=== PATIENT | male | born 1950 | race Caucasian/White ===

== ENCOUNTER 2023-06-23 09:15 | Emergency (ER) | payer MEDICARE, SELFPAY ==
[2023-06-23 09:25] VITALS: BP 105/63; PULSE 76; RESP 18; TEMP 36.1; O2SAT 94; BMI 31.5
--- NOTE | 2023-06-23 09:34 | CRLHL7_ITS ---
For Patients: As a result of the Century Cures Act, medical imaging exams and procedure reports are released immediately into your electronic medical record. You may view this report before your referring provider. If you have questions, please contact your health care provider. INDICATION: Rectal bleeding post colonoscopy on 06/22/2023 TECHNIQUE: Axial images were obtained from the diaphragm to the pubic symphysis. Reformats were obtained in the coronal and sagittal plane. IV Contrast: 131 cc Isovue 370 Oral Contrast: None COMPARISON: None. FINDINGS: Lower chest: Basilar discoid atelectasis. Liver: Unremarkable. Normal in size and attenuation. No masses. Gallbladder and bile ducts: Unremarkable. No stones or inflammation. No biliary dilatation. Spleen: Unremarkable. Normal in size without mass. Pancreas: Moderate pancreatic atrophy. Adrenal glands: Unremarkable. No nodules. Kidneys: Unremarkable. No masses, stones, or hydronephrosis. Vasculature: Atherosclerosis without abdominal aortic aneurysm. GI tract: The stomach is decompressed. Small bowel unremarkable. Normal appendix. Colon is decompressed with colonic diverticulosis, mostly at the distal descending colon and sigmoid level. No pneumoperitoneum. Pelvis: Mild prostatic calcification. Bones: Diffuse degenerative disc disease lumbar spine. IMPRESSION: 1. Mild colonic diverticulosis without evidence of pneumoperitoneum status post colonoscopy. 2. Remainder of the abdomen and pelvis CT is unremarkable. Please note that all CT scans at this facility use dose modulation, iterative reconstruction, and/or weight-based dosing when appropriate to reduce radiation dose to as low as reasonably achievable. Dictated by Willam Lee MD @ 06/23/2023 1:00:19 PM (Electronically Signed)
--- NOTE | 2023-06-23 09:47 | ED.GENADULT ---
HPI - General Adult General Chief complaint: Post Op Complication Stated complaint: rectal bleeding Time Seen by Provider: 06/23/23 09:34 History of Present Illness HPI narrative: Patient is a 73-year-old male had colonoscopy yesterday with 9 polyps removed. He has been on aspirin. He does this just preventatively. He was seen at the [facility] headed procedure with Dr. Moris colorado. Apparently had a somewhat low heart rate during the procedure and that improved nicely he was evaluated by primary care. Patient reported 2 bowel movements with little bit of blood in them this morning. He has not been dizzy or lightheaded he did feel little nauseated briefly when he had the bloody stool but that is improved. He has had a good pulse and heart rate and blood pressure at this time he denies chest pain or breathing problem or dizziness or lightheadedness. Related Data Home Medications Medication Instructions Recorded Confirmed allopurinol 100 mg tablet 200 mg PO DAILY 06/23/23 06/23/23 aspirin 81 mg tablet,delayed 81 mg PO DAILY 06/23/23 06/23/23 release atorvastatin 20 mg tablet 20 mg PO DAILY cholesterol 06/23/23 06/23/23 carvedilol 12.5 mg tablet 12.5 mg PO BID blood pressure 06/23/23 06/23/23 cholecalciferol (vitamin D3) 50 50 mcg PO DAILY 06/23/23 06/23/23 mcg (2,000 unit) capsule gabapentin 100 mg capsule mg 06/23/23 glimepiride 1 mg tablet 2 mg PO DAILY diabetes mellitus 06/23/23 06/23/23 insulin glargine 100 unit/mL (3 68 unit subcut BID 06/23/23 06/23/23 mL) subcutaneous pen (Lantus Solostar U-100 Insulin) prednisolone acetate 1 % eye 1 drp ophthalmic (eye-left) QID 06/23/23 06/23/23 drops,suspension prednisone 10 mg tablet mg 06/23/23 semaglutide 2 mg/dose (8 mg/3 mL) mg subcut 06/23/23 subcutaneous pen injector (Ozempic) Allergies Allergy/AdvReac Type Severity Reaction Status Date / Time No Known Drug Allergies Allergy Verified 06/23/23 11:52 Review of Systems Status of ROS: Reports: 6 or more systems reviewed and unremarkable except as noted in History and below Narrative: No abdominal pain Exam Narrative: Exam Narrative: Objective: Vital signs look within normal limits, no fever, blood pressure 105/63 O2 sat 94% pulse is 76 Alert orient x3 Conjunctivae are not pale Mouth clear Patient's mental status appropriate alert oriented conversant smiling interactive Heart rhythm regular without murmur Abdomen obese benign nontender External rectal area shows no bleeding, the patient did have colonoscopy yesterday. Extremities are no edema neurologic nonfocal Const: Vital Signs, click to edit/add: Vital Signs - 24 hr 06/23/23 09:25 Temperature 96.9 F L Pulse Rate [Pulse Oximeter] 76 Respiratory Rate 18 Blood Pressure [Ri ght Upper Arm] 105/63 Pulse Oximetry 94 Oxygen Delivery Me thod Room Air Course Vital Signs Vital signs: Initial Vital Signs Temperature 96.9 F L 06/23/23 09:25 Temperature Source Temporal Artery Scan 06/23/23 09:25 Pulse Rate 76 06/23/23 09:25 Respiratory Rate 18 06/23/23 09:25 Blood Pressure 105/63 06/23/23 09:25 Blood Pressure Mean 77 06/23/23 09:25 Pulse Oximetry 94 06/23/23 09:25 Oxygen Delivery Method Room Air 06/23/23 09:25 Vital Signs Temperature 96.9 F L 06/23/23 09:25 Pulse Rate 76 06/23/23 09:25 Respiratory Rate 18 06/23/23 09:25 Blood Pressure 105/63 06/23/23 09:25 Pulse Oximetry 94 06/23/23 09:25 Oxygen Delivery Method Room Air 06/23/23 09:25 Temperature 96.9 F L 06/23/23 09:25 Pulse Rate 76 06/23/23 09:25 Respiratory Rate 18 06/23/23 09:25 Blood Pressure 105/63 06/23/23 09:25 Pulse Oximetry 94 06/23/23 09:25 Oxygen Delivery Method Room Air 06/23/23 09:25 Medical Decision Making MDM Narrative Medical decision making narrative: 73-year-old male with 9 polyp removals yesterday. [facility] I think at this point he has been on aspirin. He will hold his aspirin. Will check his hemoglobin and blood work, will also get a CT to make sure there is no perforation or other issue although that is unlikely. Disposition pending findings above patient Contin comfortable plan. Addendum 1:[address] scan of the abdomen looks unremarkable for any findings no free air no pneumoperitoneum status post colonoscopy. Patient's hemoglobin is 11.1, he has not had further bleeding. I think we can have hold his aspirin and light activity light diet and then recheck check as needed but update GI clinic within the next 2-3 days. I would also recommend he stop the aspirin as mention. He can restart about a week if he is doing well. Lab Data Labs: Lab Results 06/23/23 Range/Units 09:50 WBC 11.89 H (4.50-11.00) K/uL RBC 3.59 L (4.30-5.90) m/uL Hgb 11.1 L (13.5-17.5) gm/dL Hct 32.9 L (37.0-53.0) % MCV 92 (80-100) fL MCH 31 (26-34) pg MCHC 34 (32-36) gm/dL RDW Coeff of Steven 13.4 (11.5-15.5) % Plt Count 144 (140-440) K/uL Neut % (Auto) 70.5 (42.0-72.0) % Lymph % (Auto) 19.2 L (20-44) % [place] % (Auto) 6.2 (0.0-11.0) % Eos % (Auto) 3.7 (0.0-7.0) % Baso % (Auto) 0.3 (0.0-3.0) % Neut # (Auto) 8.40 H (1.7-7.0) K/uL Lymph # (Auto) 2.30 (0.90-2.90) K/uL [place] # (Auto) 0.70 (0.00-0.90) K/UL Eos # (Auto) 0.40 (0.00-0.50) K/uL Baso # (Auto) 0.00 (0.00-0.30) K/uL Abs Immat Gran (auto) 0.00 (0.00-0.30) K/uL Imm/Tot Granulo (auto) 0.1 % Sodium 137 (135-149) mmol/L Potassium 4.4 (3.6-5.1) mmol/L Chloride 107 (96-114) mmol/L Carbon Dioxide 24 (20-32) mmol/L Anion Gap 6 L (7-15) mEq/L BUN 26 (7-30) mg/dL Creatinine 1.8 H (0.5-1.5) mg/dL Estimated Creat Clear 44.69 Estimated GFR 39 ml/min Glucose 228 H (60-115) mg/dL Calcium 8.0 L (8.4-10.6) mg/dL Discharge Plan Discharge Clinical Impression: Status post colon polypectomy, Rectal bleeding Patient Disposition: Home w/ Parent or Adult Condition: Stable Additional Instructions: Light activity, light diet, stop aspirin for the next week. Update GI clinic in the next 24-48 hours with any symptoms, return to ED if problems or concerns. Activity Level: Light activity Discharge Diet: Regular Prescriptions: No Action prednisone 10 mg tablet Patient Comments: PLEASE SEE ATTACHED FOR DETAILED DIRECTIONS atorvastatin 20 mg tablet 20 mg PO DAILY carvedilol 12.5 mg tablet 12.5 mg PO BID allopurinol 100 mg tablet 200 mg PO DAILY aspirin 81 mg tablet,delayed release (DR/EC) 81 mg PO DAILY glimepiride 1 mg tablet 2 mg PO DAILY prednisolone acetate 1 % drops,suspension 1 drp ophthalmic (eye-left) QID gabapentin 100 mg capsule Patient Comments: PLEASE SEE ATTACHED FOR DETAILED DIRECTIONS insulin glargine [Lantus Solostar U-100 Insulin] 100 unit/mL (3 mL) insulin pen 68 unit subcut BID cholecalciferol (vitamin D3) 50 mcg (2,000 unit) capsule 50 mcg PO DAILY Ozempic 2 mg/dose (8 mg/3 mL) pen injector subcut Stand Alone Forms: MyHealth Info Instructions
[2023-06-23 10:05] LABS: Basophils Percent Auto 0.3 % (0.0-3.0); Eosinophils Percent Auto 3.7 % (0.0-7.0); Hematocrit 32.9 % (37.0-53.0); Hemoglobin* 11.1 gm/dL (13.5-17.5); Immature Granulocytes Pct Auto 0.1 %; Lymphocytes Percent Auto 19.2 % (20-44); Mean Corpuscular HGB Conc 34 gm/dL (32-36); Mean Corpuscular Hemoglobin 31 pg (26-34); Mean Corpuscular Volume 92 fL (80-100); Monocytes Percent Auto 6.2 % (0.0-11.0); Neutrophils Percent Auto 70.5 % (42.0-72.0); Platelet Count* 144 K/uL (140-440); RDW Coefficient of Variation % 13.4 % (11.5-15.5); Red Blood Count 3.59 m/uL (4.30-5.90); White Blood Count* 11.89 K/uL (4.50-11.00)
[2023-06-23 10:17] LABS: Chloride* 107 mmol/L (96-114); Potassium* 4.4 mmol/L (3.6-5.1); Sodium* 137 mmol/L (135-149)
[2023-06-23 10:20] LABS: Anion Gap 6 mEq/L (7-15); Blood Urea Nitrogen* 26 mg/dL (7-30); Carbon Dioxide* 24 mmol/L (20-32); Creatinine* 1.8 mg/dL (0.5-1.5); Est. Creatinine Clearance* 44.69; Estimated Glomerular Filt Rate 39 ml/min; Glucose* 228 mg/dL (60-115)
[2023-06-23 10:23] LABS: Slide Review Reflex No
--- OUTSIDE RECORDS SUMMARY | 2023-06-23 10:24 | XMS_ITS | Continuity of Care Document ---
Author Name Unknown Organization Z [facility] Address [address] [place] [address] [address] [place] [address] Phone Care Team Providers Care Retail Receiving Clerk Name Role Phone Panda RAO MD, Ezra Unavailable Unavai lable Procedures Procedure Date Office/outpatient visit,[facility] 2010 X-ray exam lwr spine, min 4 views Advance Directives Directive Yes / No Effective Date File Name No Information Encounters Encounter Description Practice Location Reason(s) For Visit Diagnoses Date Provider Providers Copied on Encounter Z [facility] [place], [address] [place], [place] [address], [place], [address], [place] tel:[phone] [facility] No Information 1 Panda Munguia. [facility], [address] [place] [address], [id number], [place]. tel:[phone] Office/outpat ient visit,[facility], [address] [place], [place] [address], [place], [address], [place] tel:[phone] [facility] No Information 1 Anjali Garcia. [facility], [address], [address], [place], [place], [id number], [place]. tel:[phone] Referring Provider: Jose De Leon, [facility] [address] [place] [address], [facility] [address], [place], [address] . tel:[phone] Family History Family Member Type Diagnosis Age At Onset No Information Payers Payer name Insurance type Covered alliance party ID Su denton(s) Medical Assistance [place] [id number] Social History Type Description Quantity Date Captured Comments Sex Male Smoking Status No Information Chief Complaint And Reason For Visit No Information Reason For Referral Reason For Referral No Information History Of Present Illness Encounter Date Complaint History Of Prese nt Illness No Information Functional Status Date Functional Assessmen t No Information Instructions Date Instruction Additional Infor mation No Information Assessments Type Assessment Date No Information Patient Care Teams Name Effective Dates (start - stop) Status Members No Information
--- OUTSIDE RECORDS SUMMARY | 2023-06-23 10:25 | XMS_ITS | Patient Health Record ---
Author Name Unknown Organization [facility] Address [address] [place] [address] [address] [place] [address] Care Team Providers Care Stylist Apprentice Name Role Phone Gurmeet Almonte Primary Care Provider Axel Singer Unavailable [phone] Denise RAO, [facility] Unavailable Unavailable Cachorro Gambino Unavailable [phone] Billy Teague Unavailable [phone] ALLERGIES Allergen (clinical drug ingredient) Drug/Non Drug Allergy documented on EMR Reaction Allergy Type Onset Date Status Latex Latex rash Allergy Active REASON FOR REFERRAL Reason REHAB *PHYSICIAN DEIDRA ZULETA PMR/OCC MED Evaluate and treat neck, left shoulder and low back pain. Do not start PT until after MRI review. Please call pt to schedule consult at [phone] Diagnosis 1 Pain in left shoulde r (M25.512) Diagnosis 2 Low back pain, unspe cified (M54.50) Diagnosis 3 Cervicalgia (M54.2) Referral Organization [facility] Referring Provider First Name Billy Referring Provider Last Name Ho Referring Provider Speciality Physician Finish Mender Referred Provider Beba Rehabilitatio Anahi gutiérrez Referred Provider Specialty Rehabilitati on General Notes Marco Rodriguez 10/2022 03:07:50 PM >[facility], no PA required. Ok to schedule.Arely Katie 11/26/2022 03:21:35 PM >Sent TE to Referral 1. Referral Priority Routine MEDICATIONS Medication SIG (Take, Route, Frequency, Duration) Notes Start Date End Date Status Fluticasone Propionate 50 MCG/ACT 1 spray in each nostril Nasally Once a day Active Glimepiride 1 MG 2 tablet with breakfast or the first main meal of the day Orally Once a day Active Cholecalciferol Acti ve Dextrose Active Polyethylene Glycol Active Acetaminophen 500 MG 2 tablet as needed Orally every 6 hrs Active predniSONE 10 MG 1 tablet Orally as needed For Gout Active Allopurinol 100 MG 2 tablets Orally Once a day For Gout Active Lantus SoloStar 100 UNIT/ML as directed Subcutaneous Active Ozempic Active Buprenorphine 5 MCG/HR 1 patch to skin Transdermal Apply weekly for 28 days G89.29, M54.2 Pt. must meet with pharmacist on use. Active Aspirin 81 81 MG 1 tablet Orally Once a day Active Atorvastatin Calcium 20 MG 1 tablet Orally Once a day Active Carvedilol 12.5 MG 1 tablet with food Orally Twice a day Active Torsemide 20 MG as directed Orally Active SOCIAL HISTORY Sex Assigned At : Social History Observation Description Sex Assigned At Unknown PROBLEMS Problem Type ICD Code Onset Dates Problem Status W/U Status Risk SNOMED Code Notes Problem Other chronic pain (G89.29) Active confirmed Chronic pain (53151356) Problem Pain in left shoulder (M25.512) Active confirmed Shoulder joint pain (673423181) Problem Cervicalgia (M54.2) Active confirmed Cervicalgia (75095557) Problem Low back pain, unspecified (M54.50) Active confirmed Low back pain (705667467) VITAL SIGNS Blood pressure diastolic 76 mm Hg 11/26/2022 Height 73 in 11/26/2022 Blood pressure systolic 124 mm Hg 11/26/2022 Weight 265.5 lbs 11/26/2022 BMI 35.02 kg/m2 11/26/2022 Encounters Encounter Location Date Provider Diagnosis [facility] [address] [place] [address] 11/12/2022 Cachorro Gambino [address] [facility] [address] [facility] [address] [place] [address] 11/26/2022 Gurmeet Almonte Other chronic pain G89.29 ; Cervicalgia M54.2 ; Low back pain, unspecified M54.50 and Pain in left shoulder M25.512 [facility] [address] [place] [address] [address] [place] [address] 11/26/2022 Gurmeet Almonte [facility] [address] [place] [address] 11/26/2022 Gurmeet Almonte [facility] [address] [place] [address] 12/10/2022 Gurmeet Almonte [address] [facility] [address] [place] [address] 12/24/2022 Billy Teague Other chronic pain G89.29 ; Cervicalgia M54.2 ; Low back pain, unspecified M54.50 and Pain in left shoulder M25.512 BV [facility] [address] [place] [address] 01/05/2023 Axel Singer ASSESSMENTS Encounter Date Diagnosis Assessment Notes Treatment Notes Treatment Clinical Notes 11/26/2022 Other chronic pain (ICD-10 - G89.29) Cachorro presents to the clinic for an evaluation regarding his chronic neck, low back, left shoulder, and left upper extremity pain. I have reviewed his symptoms and current medications. I checked the [facility] database and I did not find any inconsistencies. He completed a left shoulder MRI on 04/26/2017 and a lumbar MRI on 11/06/2010 which I reviewed with him today; see impressions below. I have ordered an updated upright cervical, lumbar, and left shoulder MRI at [facility] to evaluate his neck, low back, and left shoulder pain.I have referred him to [facility] for a PM&R consult to start physical therapy following his imaging review. I will continue with a treatment plan consisting of medication management. Regarding medications, I have started him on Butrans 5mcg/hr patch for pain relief. I will consider Tramadol or Belbuca in the future if he does not receive adequate relief while taking Butrans. He will sign a pain contract and complete a baseline UDS at his next office visit if we will continue to prescribe opioid pain medication. This treatment plan was reviewed with Cachorro, and he was agreeable. He will return in one month for further evaluation or sooner if needed. I will continue to monitor his progress, adjusting his treatment plan as needed. Plan:1. Reviewed left shoulder and shoulder MRI2. Order upright cervical, lumbar, and left shoulder MRI3. Refer to [facility] for PM&R consult4. Start Butrans 5mcg/hr patch5. Consider Tramadol or Belbuca6. Consider establishing care7. Follow up in one month Discharge instructions reviewed verbally. Discussed the risks/benefits of prescribed medication. The patient is aware that medication may be discontinued at any time due to poor compliance with visits,and recommended treatment and/or if patient does adhere to the signed pain contract. The patient was instructed to return to the office as scheduled and call with any questions, problems or concerns. MRI Left Shoulder Dated 04/26/2017CONCLUSION: 1. Moderate supraspinatus tendinosis can be seen with superimposed partial-thickness intrasubstance and deep surface tearing involving up to 70% of the tendon thickness.2. Mild to moderate infraspinatus and subscapularis tendinosis.3. Moderate acromioclavicular joint arthrosis.4. Intra-articular rupture of the long head of the biceps tendon with subsequent retraction.5. Tearing and degeneration of the glenoid labrum.6. Chondromalacia and chondral thinning along the articular surfaces of the glenohumeral articulation without additional osteoarthritic change. MRI Lumbar Dated 11/06/2010CONCLUSION: Multilevel spondylosis with a developmentally small central spinal canal and significant findings as follows:1. Successful right subarticular decompression at L5-S1 with persistent severe right foraminal and extraforaminal stenosis with L5 impingement due to intraforaminal protrusion and chronic osteophyte.2. Right-sided L4-5 disc bulge contacts the dural sac and right L5 root with patent nerve root canals.3. Left-sided bulge and S1 impingement at L5-S1, left foraminal and extraforaminal disc herniation at L3-4 impinging the left L3 nerve, and degenerative central annular bulging at L2-3 and L4-5 without central spinal stenosis.4. Right L5-S1 and left L4-5 hypertrophic facet arthropathy.5. No MR evidence of adhesive arachnoiditis or active infection to the extent visualized. 11/26/2022 Cervicalgia (ICD-10 - M54.2) 12/24/2022 Other chronic pain (ICD-10 - G89.29) 12/24/2022 Cervicalgia (ICD-10 - M54.2) 11/26/2022 Low back pain, unspecified (ICD-10 - M54.50) 11/26/2022 Pain in left shoulder (ICD-10 - M25.512) 12/24/2022 Low back pain, unspecified (ICD-10 - M54.50) 12/24/2022 Pain in left shoulder (ICD-10 - M25.512) 11/26/2022 Other I, Selam Gallegos , am serving as a scribe to document services personally performed by Billy Teague PA-C, based upon my observations and the provider's statements to me. All documentation has been reviewed by the aforementioned EDUIN as well as Gurmeet Almonte MD, prior to being entered into the official medical record. I, Gurmeet Almonte MD attest that the above named individual is acting in scribe capacity, has observed Billy Teague's performance of the services and has documented them in accordance with her direction. The documentation recorded by the scribe accurately reflects the service Billy Teague PA-C, personally performed and the decisions made by her. Thank you very much Dr. Walker for kindly referring Cachorro to our practice. It is a pleasure to participate in Cachorro's care. Please feel free to contact me with any questions or concerns. 01/05/2023 Other I, Rio Lee, am serving as a scribe to document services personally performed by Axel Singer MD, based upon my observations and the provider's statements to me. All documentation has been reviewed by the aforementioned doctor prior to being entered into the official medical record. I, Axel Singer MD attest that the above named individual is acting in scribe capacity, has observed my performance of the services and has documented them in accordance with my direction. The documentation recorded by the scribe accurately reflects the service I personally performed and the decisions made by me. Thank you very much Dr. Almonte for kindly referring Cachorro to our practice. It is a pleasure to participate in her care. Please feel free to contact me with any questions or concerns. Left shoulder MRI dating to 3CONCLUSION: 1. Moderate supraspinatus, infraspinatus, and subscapularis tendinosis. No full or partial-thickness rotator cuff tearing is seen.2. Moderate acromioclavicular joint arthrosis with moderate narrowing of the acromiohumeral space.3. No definite osteoarthritic changes of the glenohumeral articulation are seen.4. Degeneration and tearing of the glenoid labrum.5. Suspected intra-articular rupture of the long head of the biceps tendon with subsequent retraction. Lumbar MRI dating to 3CONCLUSION: Status post L4-5 and L5-S1 decompression with the following findings:1. L5-S1 prominent right asymmetric disc herniation with right greater than left L5 impingement.2. L4-5 mild spondylolisthesis and disc bulge with L5 encroachment.3. Multilevel mild to moderate facet degeneration. Cervical MRI dating to 3CONCLUSION: Multilevel spondylosis with the following notable findings:1. C5-6 moderate to severe central stenosis and cord impingement, a small hypointense focus to the right of midline along the ligamentum flavum may representing ligamentous infolding or a small ossification.2. Moderate central stenosis with mild/borderline cord impingement C3-4, C4-5, C6-7.3. Possible C6-7 left foraminal 4 mm herniation impinging the left C7 nerve root.4. Chronic foraminal stenosis at least moderate to severe bilateral C3-4, bilateral C4-5, right C6-7.5. Multilevel facet degeneration. 12/24/2022 Other I, Jaimee walker, am serving as a scribe to document services personally performed by Billy Teague PA-C, based upon my observations and the provider's statements to me. All documentation has been reviewed by the aforementioned EDUIN. I, Billy Teague PA-C, attest that the above named individual is acting in scribe capacity, has observed my performance of the services and has documented them in accordance with my direction. The documentation recorded by the scribe accurately reflects the service I personally performed and the decisions made during the clinic visit. PLAN OF TREATMENT Pending Test Test Name Order Date MRI : Cervical Spines 11/26/2022 MRI : Lumbar 11/26/2022 MRI : Shoulder, left 11/26/2022 Insurance Providers Payer Name Payer Address Payer Phone Subscriber Number Group Number Insured Name Patient Relationship to Insured Coverage Start Date Coverage End Date [employer] [address] [address] [place], [place] [id number] Cachorro James Self - patient is the insured Medicare Part B [employer]. [address] [place] [address] [phone] [id number] Cachorro James Self - patient is the insured [employer] [place] [employer] [facility] [address] [address] [place] [address] [id number] 12.30.2 [id number] James Cachorro Self - patient is the insured [facility] [address] [address] [place], [place] [phone] [id number] Cachorro James Self - patient is the insured 1 MEDICAL (GENERAL) HISTORY Medical History History ICD Code Anxiety Arthritis Diabetes Headaches Hearing Loss High Cholesterol Kidney Disease Migraines
== END 2023-06-23 13:24 | disposition home or self-care (01) ==
PROVIDERS: Emergency Provider Family Medicine; PCP Family Medicine
DX: Z98.890 Other specified postprocedural states (principal); K62.5 Hemorrhage of anus and rectum
CPT/HCPCS: 36415; 74177; 80048; 85025; 99283; 99284; Q9967

== ENCOUNTER 2023-06-25 18:56 | Emergency (ER) | payer MEDICARE, SELFPAY ==
[2023-06-25] VITALS (48 sets, daily range): BP systolic 83–158; BP diastolic 53–79; PULSE 50–92; RESP 16; TEMP 36.4–36.6; O2SAT 91–99; BMI 35.9
[2023-06-25 19:40] LABS: Basophils Percent Auto 0.5 % (0.0-3.0); Eosinophils Percent Auto 4.4 % (0.0-7.0); Hematocrit 21.3 % (37.0-53.0); Immature Granulocytes Pct Auto 0.3 %; Lymphocytes Percent Auto 38.5 % (20-44); Mean Corpuscular HGB Conc 33 gm/dL (32-36); Mean Corpuscular Hemoglobin 31 pg (26-34); Mean Corpuscular Volume 94 fL (80-100); Monocytes Percent Auto 5.8 % (0.0-11.0); Neutrophils Percent Auto 50.5 % (42.0-72.0); Platelet Count* 202 K/uL (140-440); RDW Coefficient of Variation % 13.8 % (11.5-15.5); Red Blood Count 2.26 m/uL (4.30-5.90); White Blood Count* 17.34 K/uL (4.50-11.00)
[2023-06-25 19:43] LABS: Chloride* 110 mmol/L (96-114)
[2023-06-25 19:44] LABS: Potassium* 4.7 mmol/L (3.6-5.1); Sodium* 139 mmol/L (135-149)
[2023-06-25 19:46] LABS: Creatinine* 2.1 mg/dL (0.5-1.5); Est. Creatinine Clearance* 31.38; Estimated Glomerular Filt Rate 32 ml/min
[2023-06-25 19:47] LABS: Anion Gap 10 mEq/L (7-15); Blood Urea Nitrogen* 27 mg/dL (7-30); Calcium* 7.9 mg/dL (8.4-10.6); Carbon Dioxide* 19 mmol/L (20-32); Glucose* 244 mg/dL (60-115)
[2023-06-25 19:57] LABS: Slide Review Reflex Yes
--- NOTE | 2023-06-25 20:23 | ED.GENADULT ---
HPI - General Adult General Time Seen by Provider: 20:05 Date Seen: 06/25/23 Chief complaint: Unspecified Complaint, Adult Stated complaint: Colonoscopy Tues-bloody diarrhea, dizzy, weak Time Seen by Provider: 06/25/23 20:03 Source: patient, family, RN notes reviewed and old records reviewed Mode of arrival: ambulatory Limitations: no limitations History of Present Illness HPI narrative: Cachorro is a very pleasant 73-year-old male with history of hypo thyroidism, type 2 diabetes who comes to the emergency room for bleeding from his rectum after colonoscopy. Patient noted to undergo colonoscopy on 06/22 with reportedly 9 polyps removed by GI at [facility]. He presented to the emergency room on Saturday 06/23 with increased bleeding from the rectum. At that time hemoglobin was 11.[address] was reassuring with no evidence of perforation. He had discontinued aspirin prior to his procedure and the advice was to continue to abstain. Patient notes that he has continued bloody stools and but last night and today he has had greater than 7 diarrhea stools with blood. He notes that he is lightheaded at this time. He denies any chest pain. He has not had any fever or chills. No past history of C diff or known exposures. He denies abdominal pain. He had not been experiencing any nausea or vomiting until he arrived here and then he had some retching. Related Data Home Medications Medication Instructions Recorded Confirmed allopurinol 100 mg tablet 200 mg PO DAILY 06/23/23 06/23/23 aspirin 81 mg tablet,delayed 81 mg PO DAILY 06/23/23 06/23/23 release atorvastatin 20 mg tablet 20 mg PO DAILY cholesterol 06/23/23 06/23/23 carvedilol 12.5 mg tablet 12.5 mg PO BID blood pressure 06/23/23 06/23/23 cholecalciferol (vitamin D3) 50 50 mcg PO DAILY 06/23/23 06/23/23 mcg (2,000 unit) capsule gabapentin 100 mg capsule mg 06/23/23 glimepiride 1 mg tablet 2 mg PO DAILY diabetes mellitus 06/23/23 06/23/23 insulin glargine 100 unit/mL (3 68 unit subcut BID 06/23/23 06/23/23 mL) subcutaneous pen (Lantus Solostar U-100 Insulin) prednisolone acetate 1 % eye 1 drp ophthalmic (eye-left) QID 06/23/23 06/23/23 drops,suspension prednisone 10 mg tablet mg 06/23/23 semaglutide 2 mg/dose (8 mg/3 mL) mg subcut 06/23/23 subcutaneous pen injector (Ozempic) Allergies Allergy/AdvReac Type Severity Reaction Status Date / Time No Known Drug Allergies Allergy Verified 06/23/23 11:52 Review of Systems Status of ROS: Reports: 10 or more systems reviewed and unremarkable except as noted in History and below Const: Denies: fever or chills Eyes: Denies: change in vision ENMT: Denies: neck pain or difficulty swallowing GI: Denies: difficulty swallowing Musculo: Denies: neck pain Exam Narrative: Exam Narrative: Very pleasant gentleman alert and oriented but very pale in appearance. Oral cavity with moist mucous membranes. Conjunctiva very pale. Heart with a regular rate and rhythm and lungs are clear bilaterally. Abdomen is soft nontender. No further bloody stools since arrival. Lower extremities with scant peripheral edema. Moving all extremities. Const: Vital Signs, click to edit/add: Vital Signs - 24 hr 06/25/23 19:17 06/25/23 19:30 06/25/23 19:32 Temperature 97.6 F Pulse Rate 71 79 Pulse Rate [Right Pulse Oximeter] 92 Respiratory Rate 16 Blood Pressure 111/73 Blood Pressure [Ri ght Upper Arm] 83/54 L Pulse Oximetry 99 95 94 Oxygen Delivery Me thod Room Air 06/25/23 19:33 06/25/23 19:45 06/25/23 19:47 Temperature Pulse Rate 78 74 75 Pulse Rate [Right Pulse Oximeter] Respiratory Rate Blood Pressure 127/66 Blood Pressure [Ri ght Upper Arm] Pulse Oximetry 98 98 98 Oxygen Delivery La thod 06/25/23 20:00 06/25/23 20:02 06/25/23 20:15 Temperature Pulse Rate 71 73 74 Pulse Rate [Right Pulse Oximeter] Respiratory Rate Blood Pressure 120/59 L Blood Pressure [Ri ght Upper Arm] Pulse Oximetry 98 99 98 Oxygen Delivery La thod 06/25/23 20:17 06/25/23 20:30 06/25/23 20:32 Temperature Pulse Rate 70 79 76 Pulse Rate [Right Pulse Oximeter] Respiratory Rate Blood Pressure 105/64 119/60 Blood Pressure [Ri ght Upper Arm] Pulse Oximetry 99 98 96 Oxygen Delivery Me thod 06/25/23 20:45 06/25/23 20:47 06/25/23 21:02 Temperature Pulse Rate 75 73 71 Pulse Rate [Right Pulse Oximeter] Respiratory Rate Blood Pressure 113/68 Blood Pressure [Ri ght Upper Arm] Pulse Oximetry 98 99 99 Oxygen Delivery Me thod 06/25/23 21:05 06/25/23 21:15 06/25/23 21:17 Temperature Pulse Rate 62 72 78 Pulse Rate [Right Pulse Oximeter] Respiratory Rate Blood Pressure 119/61 Blood Pressure [Ri ght Upper Arm] Pulse Oximetry 94 97 98 Oxygen Delivery Me thod 06/25/23 21:30 06/25/23 21:32 06/25/23 21:45 Temperature Pulse Rate 66 70 77 Pulse Rate [Right Pulse Oximeter] Respiratory Rate Blood Pressure 111/53 L Blood Pressure [Ri ght Upper Arm] Pulse Oximetry 97 98 97 Oxygen Delivery Me thod 06/25/23 21:47 06/25/23 22:00 06/25/23 22:01 Temperature Pulse Rate 81 76 69 Pulse Rate [Right Pulse Oximeter] Respiratory Rate Blood Pressure 113/61 115/63 Blood Pressure [Ri ght Upper Arm] Pulse Oximetry 98 98 97 Oxygen Delivery Me thod 06/25/23 22:02 06/25/23 22:15 06/25/23 22:17 Temperature Pulse Rate 68 69 77 Pulse Rate [Right Pulse Oximeter] Respiratory Rate Blood Pressure 119/61 Blood Pressure [Ri ght Upper Arm] Pulse Oximetry 95 97 96 Oxygen Delivery Me thod 06/25/23 22:30 06/25/23 22:32 06/25/23 22:43 Temperature Pulse Rate 76 73 58 L Pulse Rate [Right Pulse Oximeter] Respiratory Rate Blood Pressure 88/75 L 118/62 Blood Pressure [Ri ght Upper Arm] Pulse Oximetry 98 91 98 Oxygen Delivery Me thod 06/25/23 22:45 06/25/23 22:47 06/25/23 22:48 Temperature Pulse Rate 75 77 65 Pulse Rate [Right Pulse Oximeter] Respiratory Rate Blood Pressure 107/55 L Blood Pressure [Ri ght Upper Arm] Pulse Oximetry 97 93 98 Oxygen Delivery Me thod 06/25/23 22:59 06/25/23 23:00 06/25/23 23:01 Temperature Pulse Rate 74 69 70 Pulse Rate [Right Pulse Oximeter] Respiratory Rate Blood Pressure 152/79 H 158/77 H Blood Pressure [Ri ght Upper Arm] Pulse Oximetry 98 99 97 Oxygen Delivery Me thod 06/25/23 23:02 06/25/23 23:15 06/25/23 23:18 Temperature Pulse Rate 73 59 L 63 Pulse Rate [Right Pulse Oximeter] Respiratory Rate Blood Pressure 153/74 H Blood Pressure [Ri ght Upper Arm] Pulse Oximetry 98 99 96 Oxygen Delivery Me thod 06/25/23 23:30 06/25/23 23:32 06/25/23 23:33 Temperature Pulse Rate 59 L 62 68 Pulse Rate [Right Pulse Oximeter] Respiratory Rate Blood Pressure 146/68 H Blood Pressure [Ri ght Upper Arm] Pulse Oximetry 97 97 95 Oxygen Delivery Me thod 06/25/23 23:35 06/25/23 23:39 06/25/23 23:45 Temperature 97.7 F 97.7 F Pulse Rate 66 63 Pulse Rate [Right Pulse Oximeter] Respiratory Rate 16 Blood Pressure 146/68 H Blood Pressure [Ri ght Upper Arm] Pulse Oximetry 96 93 Oxygen Delivery Me thod 06/25/23 23:47 06/25/23 23:48 06/25/23 23:52 Temperature 97.8 F Pulse Rate 60 50 L 68 Pulse Rate [Right Pulse Oximeter] Respiratory Rate 16 Blood Pressure 138/67 138/67 Blood Pressure [Ri ght Upper Arm] Pulse Oximetry 97 96 Oxygen Delivery Me thod 06/26/23 00:00 06/26/23 00:02 06/26/23 00:02 Temperature Pulse Rate 65 64 64 Pulse Rate [Right Pulse Oximeter] Respiratory Rate Blood Pressure 147/72 H 147/72 H Blood Pressure [Ri ght Upper Arm] Pulse Oximetry 98 97 97 Oxygen Delivery Me thod Documenting provider has reviewed patient's vital signs: yes Course Course ED Course: Patient is noted to have colonoscopy with 9 polyps removed on WednesdayJune 22. On WednesdayJune 23 he was seen in the ED for continued bleeding at which time hemoglobin was 11.[address] was reassuring. Unfortunately patient has had increased bleeding associated with diarrhea and retching today. He still denies abdominal pain. Hemoglobin is 7.0 and blood pressure initially 83 systolic and thus patient was given L of fluid while awaiting blood. Reevaluation(s) Reevaluation #1: At this point we have made multiple phone calls to lab. They appear to be having significant challenges with type and cross and therefore I have asked for O negative blood. Patient is having increased ectopy with frequent PVCs as well as hypotension with a blood pressure of 88 systolic once again. He denies chest pain but states he is not feeling well. I have asked for emergent O negative blood at this point. Reevaluation #2: Patient notes that he is feeling better ectopy has resolved after 1 unit of blood. Second unit now pending. A g of to TXA was given as well. We are on the waiting list is with the [facility]. At this point patient has not had any blood from the rectum since he has been here. Blood pressure is much improved at 0158 systolic. Vital Signs Vital signs: Initial Vital Signs Temperature 97.6 F 06/25/23 19:17 Temperature Source Temporal Artery Scan 06/25/23 19:17 Pulse Rate 92 06/25/23 19:17 Respiratory Rate 16 06/25/23 19:17 Blood Pressure 83/54 L 06/25/23 19:17 Blood Pressure Mean 63 L 06/25/23 19:17 Blood Pressure Position Sitting 06/25/23 19:17 Pulse Oximetry 99 06/25/23 19:17 Oxygen Delivery Method Room Air 06/25/23 19:17 Vital Signs Temperature 97.6 F 06/25/23 19:17 Pulse Rate 92 06/25/23 19:17 Respiratory Rate 16 06/25/23 19:17 Blood Pressure 83/54 L 06/25/23 19:17 Pulse Oximetry 99 06/25/23 19:17 Oxygen Delivery Method Room Air 06/25/23 19:17 Temperature 97.8 F 06/25/23 23:52 Pulse Rate 64 06/26/23 00:02 Respiratory Rate 16 06/25/23 23:52 Blood Pressure 147/72 H 06/26/23 00:02 Pulse Oximetry 97 06/26/23 00:02 Oxygen Delivery Method Room Air 06/25/23 19:17 Medications Administered Medications: Discontinued Medications Generic Name Dose Route Start Last Admin Trade Name Freq PRN Reason Stop Dose Admin Furosemide 10 mg 06/25/23 23:14 06/26/23 00:07 Furosemide 10 Mg/Ml Inj IVP 06/25/23 23:15 10 mg ONCE ONE Administration Tranexamic Acid 1,000 mg/ 110 mls @ 440 mls/hr 06/25/23 23:14 06/25/23 23:15 Sodium Chloride IVPB 06/25/23 23:15 Infused ONCE ONE Infusion Medical Decision Making MDM Narrative Medical decision making narrative: 1. GI bleed-patient is status post colonoscopy with 9 polyp removal. Patient is not on any blood thinners and had stopped aspirin prior to his procedure. Patient received 2 units of packed red blood cells tonight. Hemoglobin had dropped to 7.0 and blood was delayed in lab. Patient began experiencing ectopy with frequent PVCs and complaints of overall not feeling well although he had no chest pain. He is improved at this time but we are still awaiting accepting hospital as he does need repeat colonoscopy with likely cauterize a king of the bleeding areas. 2. Leukocytosis-patient had increased white count to 17,000. He has not had a fever and repeat CT shows no evidence of perforation or other concerning abnormality. I am thinking this likely represents demargination/stress response 3. Elevated creatinine-patient has had chronically elevated creatinine after a significant COVID infection early on in the pandemic. Creatinine on 06/23 was 1.8 and today it is 2.1. Rechecking at this time. 4. Disposition-currently awaiting acceptance for transfer as we would not be able to do colonoscopy here. Patient has stabilized at this time. If he has worsening symptoms an option would be to transfer ED to ED at [place]. I did receive acceptance to be on the waiting list from Dr. Lemos-GI specialist. This case is signed out to my partner Dr. Bower. Patient currently receiving 2nd unit of blood. Again no ongoing loss from lower GI system however this is a great worry as bleeding has been ongoing since Friday 06/22. Currently on waiting list at both [facility] and [facility]. Medical Records Medical records reviewed: Yes I reviewed the patient's medical records Lab Data Lab results reviewed: Yes I reviewed the patient's lab results Labs: Lab Results 06/25/23 06/25/23 06/25/23 Range/Units 19:21 19:28 20:45 WBC 17.34 H (4.50-11.00) K/uL RBC 2.26 L (4.30-5.90) m/uL Hgb 7.0 L* (13.5-17.5) gm/dL Hct 21.3 L (37.0-53.0) % MCV 94 (80-100) fL MCH 31 (26-34) pg MCHC 33 (32-36) gm/dL RDW Coeff of Steven 13.8 (11.5-15.5) % Plt Count 202 (140-440) K/uL Neut % (Auto) 50.5 (42.0-72.0) % Lymph % (Auto) 38.5 (20-44) % [place] % (Auto) 5.8 (0.0-11.0) % Eos % (Auto) 4.4 (0.0-7.0) % Baso % (Auto) 0.5 (0.0-3.0) % Neut # (Auto) 8.80 H (1.7-7.0) K/uL Lymph # (Auto) 6.70 H (0.90-2.90) K/uL [place] # (Auto) 1.00 H (0.00-0.90) K/UL Eos # (Auto) 0.80 H (0.00-0.50) K/uL Baso # (Auto) 0.10 (0.00-0.30) K/uL Abs Immat Gran (auto) 0.10 (0.00-0.30) K/uL Imm/Tot Granulo (auto) 0.3 % Diff Slide Review (Acceptable) INR 1.21 H (0.91-1.10) APTT 30 (23-33) Seconds Sodium 139 (135-149) mmol/L Potassium 4.7 (3.6-5.1) mmol/L Chloride 110 (96-114) mmol/L Carbon Dioxide 19 L (20-32) mmol/L Anion Gap 10 (7-15) mEq/L BUN 27 (7-30) mg/dL Creatinine 2.1 H (0.5-1.5) mg/dL Estimated Creat Clear 31.38 Estimated GFR 32 ml/min Glucose 244 H (60-115) mg/dL Lactate 2.9 H (0.5-1.9) mmol/L Calcium 7.9 L (8.4-10.6) mg/dL Total Bilirubin 0.4 (0.1-1.5) mg/dL Direct Bilirubin 0.0 (0.0-0.5) mg/dL AST 25 (12-35) U/L ALT 17 (4-50) U/L Alkaline Phosphatase 49 (40-150) U/L C-Reactive Protein 0.7 (0.5-1.0) mg/dL Total Protein 5.2 L (6.0-8.3) g/dL Albumin 2.8 L (3.3-5.0) g/dL Lab Acknowledgement Blood Type O Positive Antibody Screen NEGATIVE Crossmatch (AHG) See Detail 06/25/23 Range/Units 23:14 WBC (4.50-11.00) K/uL RBC (4.30-5.90) m/uL Hgb (13.5-17.5) gm/dL Hct (37.0-53.0) % MCV (80-100) fL MCH (26-34) pg MCHC (32-36) gm/dL RDW Coeff of Steven (11.5-15.5) % Plt Count (140-440) K/uL Neut % (Auto) (42.0-72.0) % Lymph % (Auto) (20-44) % [place] % (Auto) (0.0-11.0) % Eos % (Auto) (0.0-7.0) % Baso % (Auto) (0.0-3.0) % Neut # (Auto) (1.7-7.0) K/uL Lymph # (Auto) (0.90-2.90) K/uL [place] # (Auto) (0.00-0.90) K/UL Eos # (Auto) (0.00-0.50) K/uL Baso # (Auto) (0.00-0.30) K/uL Abs Immat Gran (auto) (0.00-0.30) K/uL Imm/Tot Granulo (auto) % Diff Slide Review (Acceptable) INR (0.91-1.10) APTT (23-33) Seconds Sodium (135-149) mmol/L Potassium (3.6-5.1) mmol/L Chloride (96-114) mmol/L Carbon Dioxide (20-32) mmol/L Anion Gap (7-15) mEq/L BUN (7-30) mg/dL Creatinine (0.5-1.5) mg/dL Estimated Creat Clear Estimated GFR ml/min Glucose (60-115) mg/dL Lactate (0.5-1.9) mmol/L Calcium (8.4-10.6) mg/dL Total Bilirubin (0.1-1.5) mg/dL Direct Bilirubin (0.0-0.5) mg/dL AST (12-35) U/L ALT (4-50) U/L Alkaline Phosphatase (40-150) U/L C-Reactive Protein (0.5-1.0) mg/dL Total Protein (6.0-8.3) g/dL Albumin (3.3-5.0) g/dL Lab Acknowledgement Test Added Blood Type Antibody Screen Crossmatch (AHG) Imaging Data CT scan - abdomen: Attestation: I have reviewed the pertinent imaging results. Radiologist's impression: Lower chest: Unremarkable. Liver: Normal in size and attenuation. No masses. Gallbladder and bile ducts: No stones or inflammation. No biliary dilatation. Pancreas: Unremarkable. No mass or inflammation. Spleen: Normal in size. No masses. Adrenal glands: Normal in size. No nodules. Kidneys: Normal in size. No masses, stones, or hydronephrosis. GI tract: Colonic diverticulosis. No diverticulitis. Moderate fluid throughout the colon. No obstruction. Normal in caliber. No sign of mass or inflammation. Normal appendix. Vasculature: Atherosclerosis. Lymph nodes: No lymphadenopathy. Abdominal wall/Omentum/Peritoneum: Unremarkable. No sign of mass or infiltration. No free air or significant free fluid. Pelvis: Unremarkable. No pelvic masses. Bones: Unremarkable for age. IMPRESSION: 1. No acute findings. ECG Data Attestation: I personally reviewed and interpreted this ECG as follows: Interpretation: EKG by my read shows sinus rhythm at a rate of 78. Widened QRS complex. I do not note any acute ST or T-wave changes. QT and TX intervals within normal limits. Critical Care Time Critical Care Time Critical Care Time: Yes Attestation: The patient required my highest level preparedness to intervene emergently and I personally spent this critical care time directly and personally managing the patient. This critical care time included: Obtaining a history; Examining the patient; Pulse oximetry; Ordering and reviewing of studies; Arranging urgent treatment with development of a management plan; Evaluation of patients response to treatment; Frequent reassessment discussions with other providers. This critical care time was performed to assess and manage the high probability of imminent life-threatening deterioration that could result in multiorgan failure. It was exclusive of separate billable procedures and treating other patients and teaching time. Total Critical Care Time in Minutes: 120 Discharge Plan Discharge Prescriptions: No Action prednisone 10 mg tablet Patient Comments: PLEASE SEE ATTACHED FOR DETAILED DIRECTIONS atorvastatin 20 mg tablet 20 mg PO DAILY carvedilol 12.5 mg tablet 12.5 mg PO BID allopurinol 100 mg tablet 200 mg PO DAILY aspirin 81 mg tablet,delayed release (DR/EC) 81 mg PO DAILY glimepiride 1 mg tablet 2 mg PO DAILY prednisolone acetate 1 % drops,suspension 1 drp ophthalmic (eye-left) QID gabapentin 100 mg capsule Patient Comments: PLEASE SEE ATTACHED FOR DETAILED DIRECTIONS insulin glargine [Lantus Solostar U-100 Insulin] 100 unit/mL (3 mL) insulin pen 68 unit subcut BID cholecalciferol (vitamin D3) 50 mcg (2,000 unit) capsule 50 mcg PO DAILY Ozempic 2 mg/dose (8 mg/3 mL) pen injector subcut Follow Up/Referrals: Diaz Taveras MD [Primary Care Provider] -
--- NOTE | 2023-06-25 20:28 | CRLHL7_ITS ---
For Patients: As a result of the Century Cures Act, medical imaging exams and procedure reports are released immediately into your electronic medical record. You may view this report before your referring provider. If you have questions, please contact your health care provider. INDICATION: Lower GI bleed after polyps removed during colonoscopy TECHNIQUE: CT abdomen and pelvis without contrast. COMPARISON: 06/23/[address] FINDINGS: Lower chest: Unremarkable. Liver: Normal in size and attenuation. No masses. Gallbladder and bile ducts: No stones or inflammation. No biliary dilatation. Pancreas: Unremarkable. No mass or inflammation. Spleen: Normal in size. No masses. Adrenal glands: Normal in size. No nodules. Kidneys: Normal in size. No masses, stones, or hydronephrosis. GI tract: Colonic diverticulosis. No diverticulitis. Moderate fluid throughout the colon. No obstruction. Normal in caliber. No sign of mass or inflammation. Normal appendix. Vasculature: Atherosclerosis. Lymph nodes: No lymphadenopathy. Abdominal wall/Omentum/Peritoneum: Unremarkable. No sign of mass or infiltration. No free air or significant free fluid. Pelvis: Unremarkable. No pelvic masses. Bones: Unremarkable for age. IMPRESSION: 1. No acute findings. Please note that all CT scans at this facility use dose modulation, iterative reconstruction, and/or weight-based dosing when appropriate to reduce radiation dose to as low as reasonably achievable. Dictated by Prasanth Chambers MD @ 06/25/2023 9:08:25 PM (Electronically Signed)
--- OUTSIDE RECORDS SUMMARY | 2023-06-25 20:45 | XMS_ITS | Patient Health Record ---
Author Name Unknown Organization [facility] Address [address] [place] [address] [address] [place] [address] Care Team Providers Care Respiratory Therapy Instructor Name Role Phone Gurmeet Almonte Primary Care Provider Axel Singer Unavailable [phone] Denise RAO, [facility] Unavailable Unavailable Cachorro Gambino Unavailable [phone] Billy Teague Unavailable [phone] ALLERGIES Allergen (clinical drug ingredient) Drug/Non Drug Allergy documented on EMR Reaction Allergy Type Onset Date Status Latex Latex rash Allergy Active REASON FOR REFERRAL Reason REHAB *PHYSICIAN DEIDRA ZULETA PMR/OCC MED Evaluate and treat neck, left shoulder and low back pain. Do not start PT until after MRI review. Please call pt to schedule consult at [phone] Diagnosis 1 Pain in left shoulde r (M25.512) Diagnosis 2 Low back pain, unspe cified (M54.50) Diagnosis 3 Cervicalgia (M54.2) Referral Organization [facility] Referring Provider First Name Billy Referring Provider Last Name Ho Referring Provider Speciality Physician Supervisor Dyer Referred Provider [facility] Anahi gutiérrez Referred [...] chronic pain (G89.29) Active confirmed Chronic pain (67599208) Problem Pain in left shoulder (M25.512) Active confirmed Shoulder joint pain (993103822) Problem Cervicalgia (M54.2) Active confirmed Cervicalgia (24783858) Problem Low back pain, unspecified (M54.50) Active confirmed Low back pain (232773538) VITAL SIGNS Blood pressure diastolic 76 mm Hg 11/26/2022 Height 73 in 11/26/2022 Blood pressure systolic 124 mm Hg 11/26/2022 Weight 265.5 lbs 11/26/2022 BMI 35.02 kg/m2 11/26/2022 Encounters Encounter Location Date Provider Diagnosis [facility] [address] [place] [address] 11/26/2022 Gurmeet Almonte [facility] [address] [place] [address] [address] [place] [address] 11/26/2022 Gurmeet Almonte [facility] [address] [place] [address] 12/10/2022 Gurmeet Almonte [facility] [address] [place] [address] [address] [place] [address] 11/12/2022 Cachorro Gambino [address] [facility] [address] [place] [address] 11/26/2022 Gurmeet Almonte Other chronic pain G89.29 ; Cervicalgia M54.2 ; Low back pain, unspecified M54.50 and Pain in left shoulder M25.512 BV [address] [facility] [address] [place] [address] 12/24/2022 Billy Teague Other chronic pain G89.29 ; Cervicalgia M54.2 ; Low back pain, unspecified M54.50 and Pain in left shoulder M25.512 BV [facility] [address] [place] [address] 01/05/2023 Axel Singer ASSESSMENTS Encounter Date Diagnosis Assessment Notes Treatment Notes Treatment Clinical Notes 11/26/2022 Other chronic pain (ICD-10 - G89.29) Cachorro presents to the clinic for an evaluation regarding his chronic neck, low back, left shoulder, and left upper extremity pain. I have reviewed his symptoms and current medications. I checked the [facility] database and I did not find any inconsistencies. He completed a left shoulder MRI on 04/26/2017 and a lumbar MRI on 11/06/2010 which I reviewed with him today; see impressions below. I have ordered an updated upright cervical, lumbar, and left shoulder MRI at [facility] to evaluate his neck, low back, and left shoulder pain.I have referred him to [facility] for a PM&R consult to start [...] lumbar, and left shoulder MRI3. Refer to [facility] for PM&R consult4. Start Butrans 5mcg/hr [...] Coverage Start Date Coverage End Date [id number] [address] [address] [place], [place] [id number] Cachorro James Self - patient is the insured Medicare Part B [employer] [address] [place] Hoang [address] [phone] [id number] Cachorro James Self - patient is the insured [employer] [facility] [address] [address] [place] [address] [id number] 12.30.2 [id number] James Cachorro Self - patient is the insured [facility] [address] [address] [place], [place] [id number] Cachorro James Self - patient is the insured 1 MEDICAL (GENERAL) HISTORY Medical History History ICD Code Anxiety Arthritis Diabetes Headaches Hearing Loss High Cholesterol Kidney Disease Migraines
--- OUTSIDE RECORDS SUMMARY | 2023-06-25 20:45 | XMS_ITS | Continuity of Care Document ---
Author Name Unknown Organization Z [facility] Address [address] [place] [address] [address] [place] [address] Phone Care Team Providers Care Campus Director Name Role Phone Panda RAO MD, Ezra Unavailable Unavai lable Procedures Procedure Date Office/outpatient visit,[facility] 2010 X-ray exam lwr spine, min 4 views Advance Directives Directive Yes / No Effective Date File Name No Information Encounters Encounter Description Practice Location Reason(s) For Visit Diagnoses Date Provider Providers Copied on Encounter Z [facility], [address] [place], [place] [address], [place], [address], [place] tel:[phone] [facility] No Information 1 Panda Munguia. [facility], [address] [place] [address], [id number], [place]. tel:[phone] Office/outpat ient visit,[facility] Z [facility], [address] [place], [place] [address], [place], [address], [place] tel:[phone] [facility] No Information 1 Anjali Garcia. [facility], [address], [address], [place], [place], [id number], [place]. tel:[phone] Referring Provider: Jose De Leon, [facility] [address] [place] [address], [facility] [address], [place], [address] . tel:[phone] Family History Family Member Type Diagnosis Age At Onset No Information Payers Payer name Insurance type Covered libertarian ID Su denton(s) Medical Assistance [place] [id number] Social History Type Description Quantity Date Captured [...]
[2023-06-25 20:51] LABS: Lactate* 2.9 mmol/L (0.5-1.9)
[2023-06-25 22:01] LABS: Albumin* 2.8 g/dL (3.3-5.0)
[2023-06-25 22:04] LABS: Aspartate Amino Transferase* 25 U/L (12-35); Bilirubin Total* 0.4 mg/dL (0.1-1.5); Total Protein* 5.2 g/dL (6.0-8.3)
[2023-06-25 22:05] LABS: Alanine Aminotransferase* 17 U/L (4-50); Alkaline Phosphatase* 49 U/L (40-150)
[2023-06-25 22:09] LABS: C Reactive Protein* 0.7 mg/dL (0.5-1.0)
[2023-06-25] MEDS: TRANEXAMIC ACID 1,000 MG in 0.9 % SODIUM CHLORIDE 100 ml 100 ML 440 MG IVPB (23:00)
[2023-06-25 23:34] LABS: INR 1.21 (0.91-1.10); Prothrombin Time 16.1 Seconds
[2023-06-25 23:35] LABS: Partial Thromboplastin Time* 30 Seconds (23-33)
[2023-06-26] VITALS (37 sets, daily range): BP systolic 113–147; BP diastolic 49–76; PULSE 56–92; RESP 16–18; TEMP 36.7; O2SAT 93–100
[2023-06-26] MEDS: FUROSEMIDE 10 MG/ML inj IVP (00:07)
[2023-06-26 01:08] LABS: Basophils Percent Auto 0.3 % (0.0-3.0); Eosinophils Percent Auto 1.3 % (0.0-7.0); Hematocrit 23.6 % (37.0-53.0); Immature Granulocytes Pct Auto 0.4 %; Lymphocytes Percent Auto 18.9 % (20-44); Mean Corpuscular HGB Conc 33 gm/dL (32-36); Mean Corpuscular Hemoglobin 29 pg (26-34); Mean Corpuscular Volume 89 fL (80-100); Monocytes Percent Auto 5.6 % (0.0-11.0); Neutrophils Percent Auto 73.5 % (42.0-72.0); Platelet Count* 131 K/uL (140-440); RDW Coefficient of Variation % 15.8 % (11.5-15.5); Red Blood Count 2.66 m/uL (4.30-5.90); White Blood Count* 11.47 K/uL (4.50-11.00)
[2023-06-26 01:14] LABS: Hemoglobin* 7.8 gm/dL (13.5-17.5); Slide Review Reflex No
--- NOTE | 2023-06-26 01:19 | ED.NURSE ---
notified MD for hemoglobin 7.8. said to redraw cbc at 0615. pt. stable. vitals stable.
[2023-06-26 01:31] LABS: Chloride* 112 mmol/L (96-114); Potassium* 4.5 mmol/L (3.6-5.1); Sodium* 138 mmol/L (135-149)
[2023-06-26 01:34] LABS: Anion Gap 6 mEq/L (7-15); Carbon Dioxide* 20 mmol/L (20-32); Creatinine* 1.8 mg/dL (0.5-1.5); Est. Creatinine Clearance* 36.61; Estimated Glomerular Filt Rate 39 ml/min
[2023-06-26 01:35] LABS: Blood Urea Nitrogen* 27 mg/dL (7-30); Calcium* 7.3 mg/dL (8.4-10.6); Glucose* 196 mg/dL (60-115)
== END 2023-06-26 04:59 | disposition short-term general hospital (02) ==
LOC: ED 20:43
PROVIDERS: Emergency Provider Family Medicine; PCP Family Medicine
DX: K92.2 Gastrointestinal hemorrhage, unspecified (principal)
CPT/HCPCS: 36415; 36430; 74176; 80048; 80076; 83605; 85025; 85610; 85730; 86140; 86850; 86900; 86901; 86922; 87493; 93005; 94761; 99285; 99291; 99292; A0425; A0426; J1940; P9016

== ENCOUNTER 2023-06-28 14:23 | Emergency (ER) | payer MEDICARE, SELFPAY ==
[2023-06-28 14:49] VITALS: BP 163/56; PULSE 54; RESP 18; TEMP 36.4; O2SAT 97
--- OUTSIDE RECORDS SUMMARY | 2023-06-28 19:44 | XMS_ITS | Patient Health Record ---
Author Name Unknown Organization [facility] Address [address] [place] [address] [address] [place] [address] Care Team Providers Care Certified Court/Medical Interpreter Name Role Phone Gurmeet Almonte Primary Care Provider [phone] Axel Singer Unavailable [phone] Denise RAO, [facility] Unavailable Unavailable Cachorro Gambino Unavailable [phone] Billy Teague Unavailable [phone] ALLERGIES Allergen (clinical drug ingredient) Drug/Non Drug Allergy documented on EMR Reaction Allergy Type Onset Date Status Latex Latex rash Allergy Active REASON FOR REFERRAL Reason REHAB *PHYSICIAN DEIDRA ZULETA PMR/OCC MED Evaluate and treat neck, left shoulder and low back pain. Do not start PT until after MRI review. Please call pt to schedule consult at [phone] Diagnosis 1 Pain in left shoulde r (M25.512) Diagnosis 2 Low back pain, unspe cified (M54.50) Diagnosis 3 Cervicalgia (M54.2) Referral Organization [facility] Referring Provider First Name Billy Referring Provider Last Name Ho Referring Provider Speciality Physician Improvement Rn Referred Provider [facility] Anahi gutiérrez Referred [...] chronic pain (G89.29) Active confirmed Chronic pain (82653975) Problem Pain in left shoulder (M25.512) Active confirmed Shoulder joint pain (493827442) Problem Cervicalgia (M54.2) Active confirmed Cervicalgia (53630917) Problem Low back pain, unspecified (M54.50) Active confirmed Low back pain (294436472) VITAL SIGNS Blood pressure diastolic 76 mm Hg 11/26/2022 Height 73 in 11/26/2022 Blood pressure systolic 124 mm Hg 11/26/2022 Weight 265.5 lbs 11/26/2022 BMI 35.02 kg/m2 11/26/2022 Encounters Encounter Location Date Provider Diagnosis [facility] [address] [place] [address] 11/12/2022 Cachorro Gambino [facility] [address] [place] [address] 11/26/2022 Gurmeet Almonte [facility] [address] [place] [address] 11/26/2022 Gurmeet BURGESS [facility] [address] [place] [address] 12/10/2022 Gurmeet Almonte [address] [facility] [address] [place] [address] 11/26/2022 Gurmeet Almonte Other chronic pain G89.29 ; Cervicalgia M54.2 ; Low back pain, unspecified M54.50 and Pain in left shoulder M25.512 [address] [facility] [address] [place] [address] 12/24/2022 Billy Teague Other chronic pain G89.29 ; Cervicalgia M54.2 ; Low back pain, unspecified M54.50 and Pain in left shoulder M25.512 BV [facility] [address] [place] [address] 01/05/2023 Axel Singer ASSESSMENTS Encounter Date Diagnosis Assessment Notes Treatment Notes Treatment Clinical Notes 11/26/2022 Other chronic pain (ICD-10 - G89.29) Cachorro presents to the clinic for an evaluation regarding his chronic neck, low back, left shoulder, and left upper extremity pain. I have reviewed his symptoms and current medications. I checked the [facility] database and I did not find any inconsistencies. He completed a left shoulder MRI on 04/26/2017 and a lumbar MRI on 11/06/2010 which I reviewed with him today; see impressions below. I have ordered an updated upright cervical, lumbar, and left shoulder MRI at [facility] to evaluate his neck, low back, and left shoulder pain.I have referred him to [facility] for a PM&R consult to start [...] lumbar, and left shoulder MRI3. Refer to [facility] for PM&R consult4. Start Butrans 5mcg/hr [...] Coverage Start Date Coverage End Date [employer] [address] [address] [place], [place] [id number] Cachorro James Self - patient is the insured Medicare Part B [employer]. [address] SAMANTHA Hoang [address] [phone] [id number] Cachorro James Self - patient is the insured [employer] [facility] [address] [address] [place] [address] [id number] James Cachorro Self - patient is the insured [facility] [address] [address] [place], [place] [id number] Cachorro James Self - patient is the insured 1 MEDICAL (GENERAL) HISTORY Medical History History ICD Code Anxiety Arthritis Diabetes Headaches Hearing Loss High Cholesterol Kidney Disease Migraines
--- OUTSIDE RECORDS SUMMARY | 2023-06-28 19:44 | XMS_ITS | Continuity of Care Document ---
Author Name Unknown Organization Z [facility] Address [address] [place] [address] [address] [place] [address] Phone Care Team Providers Care Biopharmaceutical Rep Name Role Phone Panda RAO MD, Ezra Unavailable Unavai lable Procedures Procedure Date Office/outpatient visit,[facility] 2010 X-ray exam lwr spine, min 4 views Advance Directives Directive Yes / No Effective Date File Name No Information Encounters Encounter Description Practice Location Reason(s) For Visit Diagnoses Date Provider Providers Copied on Encounter Z [facility], [address] [place], [place] [address], [place], [address], [place] tel:[phone] [facility] No Information 1 Panda Munguia. [facility], [address] [place] [address], [id number], [place]. tel:[phone] Office/outpat ient visit,[facility], [address] [place], [place] [address], [place], [address], [place] tel:[phone] [facility] No Information 1 Anjali Garcia. [facility], [address], [address], [place], [place], [id number], [place]. tel:[phone] Referring Provider: Jose De Leon, [facility] [address] [place] [address], [facility] [address], [place], [address] . tel:[phone] Family History Family Member Type Diagnosis Age At Onset No Information Payers Payer name Insurance type Covered republican ID Su denton(s) Medical Assistance [place] [id number] Social History Type Description Quantity Date Captured [...]
[2023-06-28 19:52] LABS: Basophils Absolute Auto 0.04 K/uL (0.00-0.30); Basophils Percent Auto 0.5 % (0.0-3.0); Eosinophils Percent Auto 7.4 % (0.0-7.0); Hematocrit 25.1 % (37.0-53.0); Hemoglobin* 8.3 gm/dL (13.5-17.5); Immature Granulocytes Abs Auto 0.04 K/uL (0.00-0.30); Immature Granulocytes Pct Auto 0.5 %; Lymphocytes Absolute Auto 1.83 K/uL (0.90-2.90); Lymphocytes Percent Auto 23.7 % (20-44); Mean Corpuscular HGB Conc 33 gm/dL (32-36); Mean Corpuscular Hemoglobin 30 pg (26-34); Mean Corpuscular Volume 92 fL (80-100); Monocytes Percent Auto 8.8 % (0.0-11.0); Neutrophils Absolute Auto 4.57 K/uL (1.7-7.0); Neutrophils Percent Auto 59.1 % (42.0-72.0); Platelet Count* 143 K/uL (140-440); Red Blood Count 2.73 m/uL (4.30-5.90); White Blood Count* 7.73 K/uL (4.50-11.00)
[2023-06-28 19:57] LABS: Slide Review Reflex No
[2023-06-28 20:02] LABS: Chloride* 108 mmol/L (96-114)
[2023-06-28 20:03] LABS: Potassium* 4.1 mmol/L (3.6-5.1); Sodium* 138 mmol/L (135-149)
[2023-06-28 20:05] LABS: Creatinine* 1.6 mg/dL (0.5-1.5); Estimated Glomerular Filt Rate 45 ml/min
[2023-06-28 20:06] LABS: Anion Gap 5 mEq/L (7-15); Blood Urea Nitrogen* 15 mg/dL (7-30); Calcium* 8.5 mg/dL (8.4-10.6); Carbon Dioxide* 25 mmol/L (20-32); Glucose* 80 mg/dL (60-115)
--- NOTE | 2023-06-28 21:46 | ED_ITS ---
HPI - General Adult General Date Seen: 06/28/23 Chief complaint: Dizziness/Vertigo Stated complaint: Dizziness Time Seen by Provider: 06/28/23 19:21 Source: patient, family, RN notes reviewed and old records reviewed Mode of arrival: ambulatory Limitations: no limitations History of Present Illness HPI narrative: Patient is a 73-year-old male who was seen here recently with GI bleed after colonoscopy and biopsy, transferred to [place] and discharged yesterday after being transfused several units of blood. Says that this morning he got up felt okay, took his morning medications including a new thyroid medicine and then briefly felt somewhat dizzy. He went to [facility] believe [facility], had a hemoglobin drawn which came back at 8. It was 8.4 apparently at discharge yesterday, but he says he was told since it was down a little bit he should come to the ER. He has not had any be visibly bloody stools, no abdominal pain, no chest pain or difficulty breathing, no fainting. In fact he has felt fine since this morning, they wonder if his new thyroid medicine might have caused the dizziness. Related Data Home Medications Medication Instructions Recorded Confirmed allopurinol 100 mg tablet 200 mg PO DAILY 06/23/23 06/23/23 aspirin 81 mg tablet,delayed 81 mg PO DAILY 06/23/23 06/23/23 release atorvastatin 20 mg tablet 20 mg PO DAILY cholesterol 06/23/23 06/23/23 carvedilol 12.5 mg tablet 12.5 mg PO BID blood pressure 06/23/23 06/23/23 cholecalciferol (vitamin D3) 50 50 mcg PO DAILY 06/23/23 06/23/23 mcg (2,000 unit) capsule gabapentin 100 mg capsule mg 06/23/23 glimepiride 1 mg tablet 2 mg PO DAILY diabetes mellitus 06/23/23 06/23/23 insulin glargine 100 unit/mL (3 68 unit subcut BID 06/23/23 06/23/23 mL) subcutaneous pen (Lantus Solostar U-100 Insulin) prednisolone acetate 1 % eye 1 drp ophthalmic (eye-left) QID 06/23/23 06/23/23 drops,suspension prednisone 10 mg tablet mg 06/23/23 semaglutide 2 mg/dose (8 mg/3 mL) mg subcut 11/29/23 subcutaneous pen injector (Ozempic) Allergies Allergy/AdvReac Type Severity Reaction Status Date / Time No Known Drug Allergies Allergy Verified 06/28/23 14:53 Review of Systems Status of ROS: Reports: 10 or more systems reviewed and unremarkable except as noted in History and below [facility] Social History Smoking Status: Never smoker Do you use any of these nicotine containing products: None Second hand tobacco smoke exposure: No How often do you have a drink containing alcohol: monthly or less How many standard drinks containing alcohol do you have on a typical day: 1 or 2 How often do you have six or more drinks on one occasion: Never AUDIT-C Alcohol total score: 1 Non-prescribed substance use: denies use Exam Narrative: Exam Narrative: Vital signs as noted above. In general, an alert, well-appearing patient. Head: Normocephalic, atraumatic. Eyes: Pupils are equal reactive. Extraocular movements are full. Conjunctivae are normal. ENT: Mucous membranes are moist. Throat is normal. Neck: Supple without lymphadenopathy. Heart: Regular rate and rhythm. No murmur or rub. Lungs: Clear bilaterally. No increased work of breathing, crackles or wheezes. Abdomen: Soft and nontender. No organomegaly. Extremities: Well perfused. No edema. No calf tenderness. Pulses intact. Neurologic: Patient is alert and oriented to person and place. Speech is fluent. Face is symmetric. Moves all extremities equally. Affect: Normal. Skin: Warm and dry. Well perfused. Const: Vital Signs, click to edit/add: Vital Signs - 24 hr 06/28/23 14:49 Temperature 97.6 F Pulse Rate [Right Pulse Oximeter] 54 L Respiratory Rate 18 Blood Pressure [Ri ght Upper Arm] 163/56 H Pulse Oximetry 97 Oxygen Delivery Me thod Room Air Documenting provider has reviewed patient's vital signs: yes Course Course ED Course: I reviewed previous records, patient had an EKG on arrival in triage which showed multiple PVCs, sinus bradycardia ventricular rate of 56. 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 His blood pressure here is normal. His blood sugar was slightly low at 66, he said he had not eaten anything since breakfast and was seen at almost 8:00 p.m. He had something to eat and felt improved. His labs showed a white blood cell count of 7.7, hemoglobin was stable at 8.3. He was in triage for 5-1/2 hours so it has been many hours since his last hemoglobin. Electrolytes are unremarkable, creatinine 1.6, BUN 15. Blood sugar was 80. At this time he is asymptomatic, his labs are reasonable, discussed that certainly hemoglobin of 8.3 is not normal, but it does sound as if it is stable and I do not think he is actively bleeding. He is scheduled to see his primary doctor next week and I have encouraged them to keep that appointment. They have not yet started the iron that was recommended so I have suggested that they do that as well and have recommended that he continue to take his thyroid medicine, keep note of whether not he feels persistently symptomatic afterward, and discuss this further with his primary doctor. If at any time he develops bloody stools, abdominal pain, fevers, fainting etcetera he should be seen again more urgently. He is comfortable with that, eager to go home. Vital Signs Vital signs: Initial Vital Signs Temperature 97.6 F 06/28/23 14:49 Temperature Source Temporal Artery Scan 06/28/23 14:49 Pulse Rate 54 L 06/28/23 14:49 Pulse Rhythm Irregular 06/28/23 14:49 Respiratory Rate 18 06/28/23 14:49 Blood Pressure 163/56 H 06/28/23 14:49 Blood Pressure Mean 91 06/28/23 14:49 Blood Pressure Position Sitting 06/28/23 14:49 Pulse Oximetry 97 06/28/23 14:49 Oxygen Delivery Method Room Air 06/28/23 14:49 Vital Signs Temperature 97.6 F 06/28/23 14:49 Pulse Rate 54 L 06/28/23 14:49 Respiratory Rate 18 06/28/23 14:49 Blood Pressure 163/56 H 06/28/23 14:49 Pulse Oximetry 97 06/28/23 14:49 Oxygen Delivery Method Room Air 06/28/23 14:49 Temperature 97.6 F 06/28/23 14:49 Pulse Rate 54 L 06/28/23 14:49 Respiratory Rate 18 06/28/23 14:49 Blood Pressure 163/56 H 06/28/23 14:49 Pulse Oximetry 97 06/28/23 14:49 Oxygen Delivery Method Room Air 06/28/23 14:49 Medical Decision Making Lab Data Labs: Lab Results 06/28/23 Range/Units 19:42 WBC 7.73 (4.50-11.00) K/uL RBC 2.73 L (4.30-5.90) m/uL Hgb 8.3 L (13.5-17.5) gm/dL Hct 25.1 L (37.0-53.0) % MCV 92 (80-100) fL MCH 30 (26-34) pg MCHC 33 (32-36) gm/dL RDW Coeff of Steven 17.0 H (11.5-15.5) % Plt Count 143 (140-440) K/uL Neut % (Auto) 59.1 (42.0-72.0) % Lymph % (Auto) 23.7 (20-44) % [place] % (Auto) 8.8 (0.0-11.0) % Eos % (Auto) 7.4 H (0.0-7.0) % Baso % (Auto) 0.5 (0.0-3.0) % Neut # (Auto) 4.57 (1.7-7.0) K/uL Lymph # (Auto) 1.83 (0.90-2.90) K/uL Providence # (Auto) 0.70 (0.00-0.90) K/UL Eos # (Auto) 0.60 H (0.00-0.50) K/uL Baso # (Auto) 0.04 (0.00-0.30) K/uL Abs Immat Gran (auto) 0.04 (0.00-0.30) K/uL Imm/Tot Granulo (auto) 0.5 % Sodium 138 (135-149) mmol/L Potassium 4.1 (3.6-5.1) mmol/L Chloride 108 (96-114) mmol/L Carbon Dioxide 25 (20-32) mmol/L Anion Gap 5 L (7-15) mEq/L BUN 15 (7-30) mg/dL Creatinine 1.6 H (0.5-1.5) mg/dL Estimated GFR 45 ml/min Glucose 80 (60-115) mg/dL Calcium 8.5 (8.4-10.6) mg/dL Blood Type O Positive Antibody Screen NEGATIVE Discharge Plan Discharge Clinical Impression: Lightheadedness, History of GI bleed Patient Disposition: Home, Self-Care Condition: Improved Instructions: Lightheadedness (ED) Additional Instructions: Take your medications as recommended, including iron. Follow up with Dr. Heidi fontenot next week as planned. If you have recurrent bloody stools, fainting, chest pain shortness of breath or other worsening return at any time to the emergency department. Prescriptions: No Action prednisone 10 mg tablet Patient Comments: PLEASE SEE ATTACHED FOR DETAILED DIRECTIONS atorvastatin 20 mg tablet 20 mg PO DAILY carvedilol 12.5 mg tablet 12.5 mg PO BID allopurinol 100 mg tablet 200 mg PO DAILY aspirin 81 mg tablet,delayed release (DR/EC) 81 mg PO DAILY glimepiride 1 mg tablet 2 mg PO DAILY prednisolone acetate 1 % drops,suspension 1 drp ophthalmic (eye-left) QID gabapentin 100 mg capsule Patient Comments: PLEASE SEE ATTACHED FOR DETAILED DIRECTIONS insulin glargine [Lantus Solostar U-100 Insulin] 100 unit/mL (3 mL) insulin pen 68 unit subcut BID cholecalciferol (vitamin D3) 50 mcg (2,000 unit) capsule 50 mcg PO DAILY Ozempic 2 mg/dose (8 mg/3 mL) pen injector subcut Follow Up/Referrals: Diaz Taveras MD [Primary Care Provider] - Stand Alone [facility] Inst[facility]
== END 2023-06-28 21:10 | disposition home or self-care (01) ==
PROVIDERS: Emergency Provider Emergency Medicine; PCP Family Medicine
DX: R42 Dizziness and giddiness (principal)
CPT/HCPCS: 36415; 80048; 82962; 85025; 86850; 86900; 86901; 99284